=== PATIENT | female | born 1970 | race Caucasian/White ===

== ENCOUNTER 2021-12-06 15:31 | Emergency (ER) | payer MEDICARE ==
[2021-12-06 16:01] LABS: HEMOGLOBIN 15.1 gm/dl (12.3-15.3); RED BLOOD COUNT 4.79 M/UL (4.00-5.10); WHITE BLOOD COUNT 8.2 K/UL (4.5-11.0)
[2021-12-06] MEDS ORDERED: PYRIDIUM200 MG PO (19:22)
[2021-12-06] MEDS ORDERED: ONDANSETRON ODT4 MG SL (19:22)
[2021-12-06] MEDS ORDERED: IBUPROFEN800 MG PO (19:22)
[2021-12-06] MEDS ORDERED: CEFUROXIME500 MG PO (19:22)
== END 2021-12-06 19:35 | disposition home or self-care (01) ==
LOC: ER1 15:31
PROVIDERS: Emergency Medicine
DX: N39.0 Urinary tract infection, site not specified (principal); F17.200 Nicotine dependence, unspecified, uncomplicated; Z87.440 Personal history of urinary (tract) infections; Z90.710 Acquired absence of both cervix and uterus
CPT/HCPCS: 80053; 81001; 83690; 85025; 87077; 87086; 87186; 99284